=== PATIENT | female | born 1985 | race African-American/Black ===

== ENCOUNTER 2017-02-28 10:59 | Emergency (ER) | payer MEDICAID, OTHER ==
[~2017-02-28] VITALS: Ht 180.3 cm; Wt 105.0 kg
[~2017-02-28 10:59] MED LIST: IBUP600T26 PO; ROBA750T3 PO; Z.0.NO CURRENT MEDS
[2017-02-28 11:01] VITALS: BP 127/65; PULSE 90; RESP 16; TEMP 98.6; O2SAT 100
--- NOTE | 2017-02-28 11:45 | PD ---
HPI . 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 Patient tells me she's had intermittent bouts of vaginal discharge with foul odor for the past few months. She is seen her primary care provider was told that she would get a referral to a hydraulic lift driver, but is still waiting on that. She says she's been tested in the emergency department before and was told that she does not have any type of infection. She wants to know why she has a bad smell down below. She denies any chance of being . She says this discharge is making it difficult for her to work because she is oftentimes finding it in her underwear. PFSH Past Medical History Anemia: Yes Diminished Hearing: No Reproductive: Yes (OVARIAN CYSTS) : 6 Para: 5 Miscarriage: 1 : 0 Ovarian Cysts: Yes Tubal Ligation: Yes Past Surgical History Abdominal Surgery: Yes () Section: Yes (x 3) Cholecystectomy: Yes Social History Alcohol Use: Yes (OCC) Tobacco Use: Yes Substance Use: Yes (MARIJUANA DAILY) Allergies-Medications (Allergen,Severity, Reaction): Coded Allergies: No Known Allergies (Verified , 02/28/17) Reported Meds & Prescriptions Reported Meds & Active Scripts Active Doxycycline Hyclate 100 Mg Cap 100 Mg PO BID Review of Systems General / Constitutional: No: Fever Eyes: No: Visual changes HENT: No: Headaches Cardiovascular: No: Chest Pain or Discomfort Respiratory: No: Shortness of Breath Gastrointestinal: No: Abdominal Pain Genitourinary: Positive: Discharge, No: Dysuria Musculoskeletal: No: Pain Skin: No Rash Neurologic: No: Weakness Psychiatric: No: Depression Endocrine: No: Polydipsia Hematologic/Lymphatic: No: Easy Bruising Physical Exam Narrative GENERAL: AAO x 3, no acute distress, Well-nourished, well-developed patient. SKIN: Warm and dry. No visible rashes or bruising. HEAD: Normocephalic and atraumatic. EYES: No scleral icterus. No injection or drainage. ENT: No nasal drainage noted. Mucous membranes pink. Airway patent. NECK: Supple, trachea midline. No JVD. CARDIOVASCULAR: Regular rate and rhythm without murmurs, gallops, or rubs. RESPIRATORY: Breath sounds equal bilaterally. No accessory muscle use. No rhonchi or rales. GASTROINTESTINAL: Abdomen soft, non-tender, nondistended. GENITAL: Amelie RN present; minimal discharge with foul odor and + cervical motion tenderness EXTREMITIES: No cyanosis or edema. BACK: No obvious deformity. No CVA tenderness. NEURO: CN II-12 intact, superintendent stations strength normal b/l, UE and LE 5/5, no focal deficits PSYCH: AAO x 3, normal affect. Data Data Last Documented VS Vital Signs Date Time Temp Pulse Resp B/P (MAP) Pulse Ox O2 Delivery O2 Flow Rate FiO2 02/28/17 11:01 98.6 90 16 127/65 (85) 100 Orders Orders Gc And Chlamydia Pcr (02/28/17 11:55) Wet Prep Profile (02/28/17 11:55) Urinalysis - C+S If Indicated (02/28/17 11:55) Ed Urine Pregnancytest Poc (02/28/17 11:55) Azithromycin Powd Pack (Zithromax Powd P (02/28/17 12:00) Ceftriaxone Inj (Rocephin Inj) (02/28/17 12:00) Lidocaine 1% Inj (50 Ml) (Xylocaine 1% I (02/28/17 12:00) Metronidazole (Flagyl) (02/28/17 12:45) Labs Laboratory Tests Test 02/28/17 11:50 Urine Color YELLOW Urine Turbidity HAZY Urine pH 5.5 Urine Specific [place] 1.022 Urine Protein NEG mg/dL Urine Glucose (UA) NEG mg/dL Urine Ketones NEG mg/dL Urine Occult Blood NEG Urine Nitrite NEG Urine Bilirubin NEG Urine Urobilinogen LESS THAN 2.0 MG/DL Urine Leukocyte Esterase SMALL Urine RBC 4 /hpf Urine WBC 4 /hpf Urine Squamous Epithelial Cells 16 /hpf Urine Mucus FEW /lpf Urine Trichomonas RARE Microscopic Urinalysis Comment CULT NOT INDICATED Clue Cells (Wet Prep) NONE SEEN Vaginal Trichomonas (Wet Prep) PRESENT Vaginal Yeast (Wet Prep) NONE SEEN MDM Medical Decision Making Medical Screen Exam Complete: Yes Emergency Medical Condition: Yes Medical Record Reviewed: Yes Differential Diagnosis cervicitis, BV, Trichomonas, Candidiasis, PID, Gonorrhea, chlamydia Narrative Course 31-year-old female here with complaints of vaginal discharge. Examination there is no large amount of vaginal discharge, but there is a foul odor present and cervical motion tenderness. Wet prep, gonorrhea and chlamydia PCR as well as urinalysis have been ordered. ED test was ordered. Patient did have some cervical motion tenderness on examination I will go ahead and treat her for PID. Laboratory Tests Test 02/28/17 11:50 Urine Color YELLOW Urine Turbidity HAZY Urine pH 5.5 Urine Specific [place] 1.022 Urine Protein NEG mg/dL Urine Glucose (UA) NEG mg/dL Urine Ketones NEG mg/dL Urine Occult Blood NEG Urine Nitrite NEG Urine Bilirubin NEG Urine Urobilinogen LESS THAN 2.0 MG/DL Urine Leukocyte Esterase SMALL Urine RBC 4 /hpf Urine WBC 4 /hpf Urine Squamous Epithelial Cells 16 /hpf Urine Mucus FEW /lpf Urine Trichomonas RARE Microscopic Urinalysis Comment CULT NOT INDICATED Clue Cells (Wet Prep) NONE SEEN Vaginal Trichomonas (Wet Prep) PRESENT Vaginal Yeast (Wet Prep) NONE SEEN Discussed results with patient. She is positive for trichomonas. I recommend she be tested for additional STDs such as herpes, HIV and HPV. I explained to her that her partners will need to be treated. I'm also treating her for PID, along with chlamydia and gonorrhea. Patient verbalized understanding of instructions, questions were answered, and thanked me for their care. I advised them if their condition worsens, please return to the nearest emergency room for further care. Diagnosis Primary Impression: Trichomonas infection Additional Impression: PID (pelvic inflammatory disease) Patient Instructions: General Instructions Additional Instructions: Please reach out to her local health department for further testing to include HIV, hepatitis and herpes. Please return to emergency department if your symptoms return or worsen. Follow up with your primary care provider. Take medications as prescribed. Med/Other Pt SpecificInfo: Prescription(s) given Scripts Doxycycline Hyclate (Doxycycline Hyclate) 100 Mg Cap 100 MG PO BID for Infection, #28 CAP 0 Refills Prov: Jarrod Nguyen MD 02/28/17 Disposition: 01 DISCHARGE HOME Condition: Stable Kathy Membreno Feb 28, 2017 11:45
[2017-02-28] MEDS ORDERED: cefTRIAXone 250 MG VIAL IM ONE (12:00)
[2017-02-28] MEDS ORDERED: LIDOCAINE HCL 1% 50 ML VIAL IM ONE (12:00)
[2017-02-28] MEDS ORDERED: AZITHROMYCIN PWD FOR SUSP 1 GM PACKET PO ONE (12:00)
[2017-02-28] MEDS ORDERED: DOXY100C PO (12:06)
[2017-02-28 12:29] LABS: BLOOD, URINE NEG (NEG); COMMENT (UR) CULT NOT INDICATED; CULTURE IF INDICATED CULT NOT INDICATED; GLUCOSE,URINE NEG (NEG); KETONE, URINE NEG (NEG); MUCUS URINE FEW /lpf (OCC); NITRITE,URINE NEG (NEG); PH, URINE 5.5 (5.0-8.5); SQUAMOUS EPITHELIAL CELL URINE 16 /hpf (0-5); URINE COLOR YELLOW (YELLW/STRAW)
[2017-02-28] MEDS ORDERED: metroNIDAZOLE 500 MG TAB PO ONE (12:45)
[2017-02-28 15:36] LABS: CHLAMYDIA PCR NOT DETECTED (NOT DETECT); NEISSERIA PCR NOT DETECTED (NOT DETECT)
== END 2017-02-28 12:57 | disposition home or self-care (01) ==
LOC: NEPD 10:59
DX: N73.8 Other specified female pelvic inflammatory diseases (principal); A59.9 Trichomoniasis, unspecified; D64.9 Anemia, unspecified; Z72.0 Tobacco use
CPT/HCPCS: 81001; 84703; 87210; 87491; 87591; 96372; 99284; J0696

== ENCOUNTER 2017-07-30 04:52 | Emergency (ER) | payer MEDICAID ==
[~2017-07-30] VITALS: Ht 180.3 cm; Wt 120.0 kg
[~2017-07-30 04:52] MED LIST changes: +DOXY100C PO; -IBUP600T26 PO; -ROBA750T3 PO; -Z.0.NO CURRENT MEDS
[2017-07-30 04:54] VITALS: BP 130/77; PULSE 88; RESP 16; TEMP 98.9; O2SAT 98
[2017-07-30] MEDS ORDERED: AMOX500C PO (04:59)
[2017-07-30] MEDS ORDERED: RALTEGRAVIR 400 MG TAB PO ONE (05:15)
[2017-07-30] MEDS ORDERED: EMTRICITABINE/TENOFOVIR 200 MG/300 MG TAB PO ONE (05:15)
--- NOTE | 2017-07-30 05:21 | PD ---
HPI . 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 She had vaginal intercourse with an HIV positive patient who was not wearing a condom. This happened about an hour prior to presentation. She has no symptoms. PFSH Past Medical History Anemia: Yes Diminished Hearing: No Reproductive: Yes (OVARIAN CYSTS) Tetanus Vaccination: > 5 Years Influenza Vaccination: No ?: Not LMP: 07/17/17 : 6 Para: 5 Miscarriage: 1 : 0 Ovarian Cysts: Yes Tubal Ligation: Yes Past Surgical History Abdominal Surgery: Yes () Section: Yes (x 3) Cholecystectomy: Yes Social History Alcohol Use: No Tobacco Use: Yes Substance Use: Yes (MARIJUANA DAILY) Allergies-Medications (Allergen,Severity, Reaction): Coded Allergies: No Known Allergies (Verified Adverse Reaction, Unknown, 07/30/17) Reported Meds & Prescriptions Reported Meds & Active Scripts Active Reported Amoxicillin 500 Mg Cap 500 Mg PO Q6HR Review of Systems Except as stated in HPI: all other systems reviewed are Neg Physical Exam Narrative GENERAL: Awake and alert and in no acute distress. SKIN: Warm and dry. HEAD: Normocephalic/atraumatic. EYES: Pupils are equal. Extraocular movements are intact. Distally NECK: Normal range of motion. CARDIOVASCULAR: Regular rate and rhythm. RESPIRATORY: Nonlabored respirations. MUSCULOSKELETAL: Atraumatic. NEUROLOGICAL: Nonfocal. PSYCHIATRIC: Appropriate mood and affect. Data Data Last Documented VS Vital Signs Date Time Temp Pulse Resp B/P (MAP) Pulse Ox O2 Delivery O2 Flow Rate FiO2 07/30/17 04:54 98.9 88 16 130/77 (94) 98 Room Air Orders Orders Emtricitabin-Tenofov 200-300mg (Truvada (07/30/17 05:15) Raltegravir (Isentress) (07/30/17 05:15) Complete Blood Count With Diff (07/30/17 05:13) Comprehensive Metabolic Panel (07/30/17 05:15) Hiv Antibody Screen (07/30/17 05:13) Hepatitis Profile (07/30/17 05:13) MDM Medical Decision Making Medical Screen Exam Complete: Yes Emergency Medical Condition: Yes Differential Diagnosis Differential diagnosis includes but is not limited to HIV exposure, hepatitis B exposure, hepatitis C exposure Narrative Course This patient presents with the chief complaint of vaginal sexual exposure to HIV. I have queried UpToDate. It recommends prophylactic treatment with Truvada and Isentress. I have ordered a CBC, CMP, hepatitis panel and HIV screening. I will discharge her with prescriptions and instructions to follow up at [facility] next week for continued monitoring and prophylactic treatment. 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 1 week Patient Instructions: General Instructions Med/Other Pt SpecificInfo: Prescription(s) given Scripts Raltegravir (Isentress) 400 Mg Tab 400 MG PO BID for Mgmt Viral Infection, #60 TAB 0 Refills Prov: Telma Singer MD 07/30/17 Emtricitabine-Tenofovir Disoproxil Fumarate (Truvada) 200-300 Mg Tab 1 TAB PO DAILY for Mgmt Viral Infection, #30 TAB 0 Refills Prov: Telma Singer MD 07/30/17 Disposition: 01 DISCHARGE HOME Condition: Stable Telma Singer MD Jul 30, 2017 05:21
[2017-07-30] MEDS ORDERED: RALT400 PO (05:27)
[2017-07-30] MEDS ORDERED: TRUV200300 PO (05:27)
[2017-07-30 05:48] LABS: BASOPHIL # 0.1 TH/MM3 (0-0.2); EOSINOPHIL # 0.3 TH/MM3 (0-0.4); EOSINOPHIL % 4.2 % (0.0-4.0); HEMATOCRIT 39.8 % (35.0-46.0); HEMOGLOBIN 13.7 GM/DL (11.6-15.3); LYMPHOCYTE # 3.2 TH/MM3 (1.0-4.8); MEAN CELL VOLUME 90.2 FL (80.0-100.0); MEAN CORPUSCULAR HGB CONC 34.4 % (32.0-36.0); MEAN PLATELET VOLUME 7.3 FL (7.0-11.0); MONO % 9.1 % (0.0-8.0); MONOCYTE # 0.7 TH/MM3 (0-0.9); NEUT % 41.7 % (16.0-70.0); PLATELET COUNT 305 TH/MM3 (150-450); RED BLOOD COUNT 4.41 MIL/MM3 (4.00-5.30); RED CELL DISTRIBUTION WIDTH 13.8 % (11.6-17.2); WHITE BLOOD COUNT 7.2 TH/MM3 (4.0-11.0)
[2017-07-30 06:14] LABS: ALBUMIN 3.6 GM/DL (3.4-5.0); ALT (GPT) 22 U/L (10-53); AST (GOT) 17 U/L (15-37); BICARBONATE 28.8 MEQ/L (21.0-32.0); BLOOD UREA NITROGEN 12 MG/DL (7-18); CALCIUM 8.7 MG/DL (8.5-10.1); CHLORIDE 105 MEQ/L (98-107); GLOMERULAR FILTRATION RATE 78 ML/MIN (>89); GLUCOSE,RANDOM 69 MG/DL (74-106); SODIUM (NA) 139 MEQ/L (136-145)
[2017-07-30 06:17] LABS: ALKALINE PHOSPHATASE 102 U/L (45-117); TOTAL BILIRUBIN ADULT 0.2 MG/DL (0.2-1.0); TOTAL PROTEIN 7.8 GM/DL (6.4-8.2)
[2017-07-31 13:40] LABS: HEPATITIS A AB IGM NEGATIVE (NEGATIVE); HEPATITIS B CORE AB IGM NEGATIVE (NEGATIVE); HEPATITIS B SURFACE ANTIGEN NEGATIVE (NEGATIVE); HEPATITIS C AB IgG NEGATIVE (NEGATIVE)
== END 2017-07-30 06:49 | disposition home or self-care (01) ==
LOC: NEPE 04:52
DX: Z20.6 Contact with and (suspected) exposure to human immunodeficiency virus [HIV] (principal); F12.90 Cannabis use, unspecified, uncomplicated; Z72.0 Tobacco use
CPT/HCPCS: 80053; 80074; 85025; 86703; 99283